=== PATIENT | female | born 1945 | race Caucasian/White ===

== ENCOUNTER → 2018-12-13 | Outpatient (CLI) | payer OTHER ==
[~2018-12-13] MED LIST: GADOBUTROL 7.5 MMOL/7.5 ML PFS ONE
== END | disposition home or self-care (01) ==
LOC: CFH 11:35
PROVIDERS: ATTEND Radiology Radiation Oncology
DX: D32.0 Benign neoplasm of cerebral meninges (principal); D36.10 Benign neoplasm of peripheral nerves and autonomic nervous system, unspecified; I10 Essential (primary) hypertension
CPT/HCPCS: 70553; 82565; A9585